=== PATIENT | male | born 1960 | race Caucasian/White ===

== ENCOUNTER 2018-01-11 07:26 | Emergency (ER) | payer OTHER ==
[~2018-01-11] VITALS: Ht 172.7 cm; Wt 79.4 kg
[~2018-01-11 07:26] MED LIST: ADVIL200 MG PO; AZOR 5/20 MG1 TABLET PO; CIPRO500 MG PO; FLAGYL500 MG PO
[2018-01-11 08:27] LABS: HEMATOCRIT 41.9 % (38.0-50.0); HEMOGLOBIN 15.3 G/DL (12.5-16.6); MCH 31.8 PG (29.0-34.0); MCHC 36.5 G/DL (30.0-36.0); MCV 87.1 FL (86-99); PLATELET COUNT 179 K/uL (156-360); RBC DIS.WIDTH-CV 11.5 % (11.8-14.6); RBC DIS.WIDTH-SD 37.1 % (39-53); RED BLOOD COUNT 4.81 M/uL (4.00-5.50); WHITE BLOOD COUNT 8.4 K/uL (4.1-10.2)
[2018-01-11 09:03] LABS: ALBUMIN 4.1 G/DL (3.2-4.8); ALKALINE PHOSPHATASE 68 IU/L (3-129); ALT (GPT) 52 IU/L (3-49); AST (GOT) 31 IU/L (2-34); CHLORIDE 104 MEQ/L (99-109); CREATININE 0.9 MG/DL (0.6-1.3); GFR ESTIMATE (CALCULATED) > 59 mL/min/ (58.99-99999); GLUCOSE 100 mg/dL (70-99); POTASSIUM 3.5 MEQ/L (3.7-5.4); SODIUM 137 MEQ/L (136-147); TOTAL BILIRUBIN 0.6 MG/DL (0.0-1.0); TOTAL PROTEIN 6.4 G/DL (6.4-8.3); UREA NITROGEN (BUN) 18 mg/dL (9-23)
[2018-01-11] MEDS ORDERED: CIPRO500 MG PO (11:09)
[2018-01-11] MEDS ORDERED: FLAGYL500 MG PO (11:09)
[2018-01-11] MEDS ORDERED: BENTYL20 MG PO (11:09)
[2018-01-11 11:22] VITALS: BP 127/67
== END 2018-01-11 11:30 | disposition home or self-care (01) ==
LOC: EME 07:26
PROVIDERS: Emergency Medicine
DX: K52.9 Noninfective gastroenteritis and colitis, unspecified (principal); I10 Essential (primary) hypertension
CPT/HCPCS: 74177; 80053; 85027; 99281; 99284; J1885; J2405; J7030